=== PATIENT | male | born 1980 | race Caucasian/White ===

== ENCOUNTER 2018-08-23 02:22 | Emergency (ER) | payer SELFPAY ==
[2018-08-23 12:56] LABS: ALT (SGPT) 42 U/L (8-55); AST (SGOT) 22 U/L (5-34); Albumin 4.1 g/dL (3.5-5.0); Alkaline Phosphatase 52 U/L (40-150); Anion Gap 13 mmol/L (10-20); BUN (Urea Nitrogen) 14 mg/dL (8.9-20.6); Bilirubin, Total 0.7 mg/dL (0.2-1.2); Calc. Creatinine Clearance 0 mL/min (70-130); Calcium 9.8 mg/dL (7.8-10.44); Carbon Dioxide 25 mmol/L (22-29); Chloride 104 mmol/L (98-107); Estimated GFR-MDRD 75; Globulin 3.3 g/dL (2.4-3.5); Glucose 91 mg/dL (70-105); Potassium 4.1 mmol/L (3.5-5.1); Protein, Total 7.4 g/dL (6.0-8.3); Sodium 138 mmol/L (136-145)
[2018-08-23 13:48] LABS: PTT 34.8 SEC (22.9-36.1); Prothrombin Time 13.1 SEC (12.0-14.7)
[2018-08-23 13:50] LABS: #Basophils 0.1 thou/uL (0.0-0.2); #Eosinphils 0.5 thou/uL (0.0-0.7); #Lymphocytes 2.8 thou/uL (1.20-3.40); #Monocytes 0.7 thou/uL (0.11-0.59); #Neutrophils 5.7 thou/uL (1.40-6.50); %Basophils 0.6 % (0.0-1.0); %Eosinophils 5.5 % (0.0-10.0); %Lymphocytes 28.2 % (21.0-51.0); %Monocytes 7.5 % (0.0-10.0); %Neutrophils 58.1 % (42.0-75.0); Hemoglobin 17.4 g/dL (14.0-18.0); Mean Corpuscular Hemoglobin 30.8 pg (27.0-31.0); Mean Corpuscular Volume 90.8 fL (78.0-98.0); Mean Platelet Volume 7.5 fL (7.4-10.4); Platelet Count 209 thou/uL (130-400); RBC Distribution Width 11.4 % (11.5-14.5); Red Blood Cell (RBC) Count 5.63 mill/uL (4.70-6.10); White Blood Cell (WBC) Count 9.8 thou/uL (4.8-10.8)
== END 2018-08-23 11:31 | disposition home or self-care (01) ==
LOC: ERS 02:22
DX: K64.5 Perianal venous thrombosis (principal)
CPT/HCPCS: 80053; 85025; 85610; 85730; 86850; 86900; 86901; 99283

== ENCOUNTER 2020-04-15 18:35 | Emergency (ER) | payer SELFPAY ==
[~2020-04-15 18:35] MED LIST: Iopamidol-370 76% 500 ML 1 ML ONE
--- NOTE | 2020-04-15 19:28 | RAD ---
CHEST ONE VIEW: 04/15/20 HISTORY: Chest pain. COMPARISON: Chest radiograph 2011. FINDINGS: Lungs are clear. No pneumothorax or effusion. Cardiac silhouette and mediastinal contours are within normal limits. No acute osseous abnormality. IMPRESSION: No acute intrathoracic abnormality. POS: HOME
[2020-04-15 19:41] LABS: #Basophils 0.1 thou/uL (0.0-0.2); #Eosinphils 0.4 thou/uL (0.0-0.7); #Lymphocytes 2.8 thou/uL (1.20-3.40); #Monocytes 0.8 thou/uL (0.11-0.59); #Neutrophils 5.3 thou/uL (1.40-6.50); %Basophils 0.7 % (0.0-1.0); %Lymphocytes 30.1 % (21.0-51.0); %Monocytes 8.3 % (0.0-10.0); Hemoglobin 17.2 g/dL (14.0-18.0); Mean Corpuscular HGB CONC 35.2 g/dL (32.0-36.0); Mean Corpuscular Hemoglobin 31.4 pg (27.0-31.0); Mean Corpuscular Volume 89.1 fL (78.0-98.0); Mean Platelet Volume 7.5 fL (7.4-10.4); Platelet Count 216 thou/uL (130-400); RBC Distribution Width 11.2 % (11.5-14.5); Red Blood Cell (RBC) Count 5.47 mill/uL (4.70-6.10); White Blood Cell (WBC) Count 9.4 thou/uL (4.8-10.8)
[2020-04-15 19:59] LABS: ALT (SGPT) 27 U/L (8-55); AST (SGOT) 16 U/L (5-34); Albumin 4.3 g/dL (3.5-5.0); Alkaline Phosphatase 53 U/L (40-110); Anion Gap 11 mmol/L (10-20); BUN (Urea Nitrogen) 14 mg/dL (8.9-20.6); Bilirubin, Total 0.7 mg/dL (0.2-1.2); Calc. Creatinine Clearance 0 mL/min (70-130); Calcium 9.6 mg/dL (7.8-10.44); Carbon Dioxide 26 mmol/L (22-29); Chloride 106 mmol/L (98-107); Estimated GFR-MDRD 69; Globulin 3.1 g/dL (2.4-3.5); Glucose 95 mg/dL (70-105); Potassium 3.9 mmol/L (3.5-5.1); Protein, Total 7.4 g/dL (6.0-8.3); Sodium 139 mmol/L (136-145)
--- NOTE | 2020-04-15 20:15 | CT ---
CT ABDOMEN AND PELVIC WITH CONTRAST: 04/15/20 HISTORY: Abdominal pain. COMPARISON: None. FINDINGS: Lung bases are clear. No pericardial effusion. No dilated loops of large or small bowel. The appendix is visualized and is normal. The spleen, pancreas, adrenal glands are unremarkable. Small cyst posterior cortex superior pole left kidney. Celiac trunks, superior mesenteric arteries are patent. Aortic contour is normal. No retrope ritoneal or periaortic adenopathy. Small cyst hepatic segment 7. There is a 1 cm cyst hepatic segment 5. Bilateral pars interarticularis defect at L5 with 2-3 mm anterolisthesis. IMPRESSION: No acute inflammatory process in the abdomen or pelvis. POS: HOME
--- NOTE | 2020-04-17 12:08 | EKG ---
Test Reason : CP Blood Pressure : / mmHG Vent. Rate : 063 BPM Atrial Rate : 063 BPM P-R Int : 160 ms QRS Dur : 090 ms QT Int : 382 ms P-R-T Axes : 015 -08 001 degrees QTc Int : 390 ms Normal sinus rhythm Minimal voltage criteria for LVH, may be normal variant Borderline ECG Confirmed by DEVAN TRIPATHI DO ([id number]), editor farm journal JOYCE OLSON ([id number]) on 04/17/2020 12:08:09 PM Referred By: Confirmed By:DEVAN TRIPATHI DO
== END 2020-04-15 20:33 | disposition home or self-care (01) ==
LOC: ERS 18:35
DX: R07.9 Chest pain, unspecified (principal); R10.11 Right upper quadrant pain
CPT/HCPCS: 71045; 74177; 80053; 84484; 85025; 93005; Q9967

== ENCOUNTER 2020-04-20 19:27 | Observation (INO) | payer SELFPAY ==
[2020-04-20] MEDS ORDERED: Aspirin Chewable 81 MG TAB ONE (20:46)
[2020-04-20] MEDS ORDERED: Nitroglycerin 0.4 MG TAB 1 EACH ONE (20:46)
[2020-04-20 20:47] LABS: #Basophils 0.1 thou/uL (0.0-0.2); #Eosinphils 0.3 thou/uL (0.0-0.7); #Lymphocytes 2.7 thou/uL (1.20-3.40); #Monocytes 0.7 thou/uL (0.11-0.59); #Neutrophils 5.4 thou/uL (1.40-6.50); %Basophils 0.7 % (0.0-1.0); %Eosinophils 3.5 % (0.0-10.0); %Lymphocytes 29.4 % (21.0-51.0); %Monocytes 7.4 % (0.0-10.0); Hemoglobin 17.4 g/dL (14.0-18.0); Mean Corpuscular HGB CONC 34.5 g/dL (32.0-36.0); Mean Corpuscular Hemoglobin 30.6 pg (27.0-31.0); Mean Corpuscular Volume 88.9 fL (78.0-98.0); Mean Platelet Volume 7.6 fL (7.4-10.4); Platelet Count 240 thou/uL (130-400); RBC Distribution Width 11.1 % (11.5-14.5); Red Blood Cell (RBC) Count 5.67 mill/uL (4.70-6.10); White Blood Cell (WBC) Count 9.1 thou/uL (4.8-10.8)
[2020-04-20] MEDS ORDERED: Acetaminophen 500 MG TAB ONE (20:58)
[2020-04-20 21:10] LABS: ALT (SGPT) 24 U/L (8-55); AST (SGOT) 15 U/L (5-34); Albumin 4.3 g/dL (3.5-5.0); Alkaline Phosphatase 56 U/L (40-110); Anion Gap 14 mmol/L (10-20); BUN (Urea Nitrogen) 13 mg/dL (8.9-20.6); Bilirubin, Total 0.8 mg/dL (0.2-1.2); Calc. Creatinine Clearance 0 mL/min (70-130); Calcium 9.4 mg/dL (7.8-10.44); Carbon Dioxide 26 mmol/L (22-29); Chloride 104 mmol/L (98-107); Estimated GFR-MDRD 66; Globulin 3.2 g/dL (2.4-3.5); Glucose 93 mg/dL (70-105); Lipase 190 U/L (8-78); Potassium 3.8 mmol/L (3.5-5.1); Protein, Total 7.5 g/dL (6.0-8.3); Sodium 140 mmol/L (136-145)
--- NOTE | 2020-04-20 21:56 | RAD ---
PORTABLE CHEST ONE VIEW: 04/20/20 at 8:42 p.m. HISTORY: Chest pain. FINDINGS: Comparison made with exam of 04/15/20. The heart size is normal. No focal areas of consolidation, pneumothoraces, or pleural effusions are s een. IMPRESSION: No radiographic evidence of acute cardiopulmonary process. POS: [facility]
--- NOTE | 2020-04-20 22:26 | ULT ---
GALLBLADDER ULTRASOUND: HISTORY: Right upper quadrant abdominal pain FINDINGS: The liver demonstrates homogeneous echotexture without intrahepatic biliary ductal dilatation. There is a 1.4 x 1.2 x 1.6 cm cyst in the right lobe of the liver. No gallstones, gallbladder wall thickening or pericholecystic fluid are seen. The pancreas and common bile duct are obscured by bowel gas. The right kidney is normal. No free fluid is seen in the Norton's pouch. IMPRESSION: 1. Liver cyst 2. No evidence of cholelithiasis
[2020-04-20 23:49] VITALS: BMI 30.4
[2020-04-20] MEDS ORDERED: Senokot S 8.6-50 MG TAB PO PRN (23:56)
[2020-04-20] MEDS ORDERED: Acetaminophen 325 MG TAB PO PRN (23:56)
[2020-04-20] MEDS ORDERED: Calcium Carbonate 500 MG ChewTAB PO PRN (23:56)
[2020-04-20] MEDS ORDERED: Ondansetron ODT 4 MG TAB PO PRN (23:56)
[2020-04-20] MEDS ORDERED: Ondansetron PF 4 MG/2 ML Vial IVP PRN (23:56)
--- NOTE | 2020-04-21 00:48 | PDOC.FPRHP ---
- History of Present Illness Chief Complaint: CP History of Present Illness: Pt is a 39 yo M with pmh of GERD and gas pain who presents to the ED for chest pain. The patient was seen earlier this week for similar symptoms, but was sent home. The patient states that he has had this chest pain for 2 weeks. The pain is a fluttery feeling on the right with right upper quadrant pain as well. He says he also has chest pain on the left that feels like a hard beat. He says the pain occurs while at rest as well as during exertion. He said the pain has gone away on it's own in the past, but the pain he experienced today was relieved with Nitro. Usually, he says he writes most pain off as due to his GERD , but he says this feels different than the GERD he has had in the past and he is concerned because he has a significant family history. He established with Dr. Levine earlier this week and was supposed to get a Cardiology referral call tomorrow. He did mention left arm numbness when he experiences these episodes from time to time. Of note, the patient says he has lost 20 lbs over the last 3 months intentionally with his daughter by running daily and avoiding added sweetners. He stated he was up to 2 miles running, but with this pain he does not know if he can run what he was running. ED Course: In the ED, he was given Tylenol, ASA, and nitroglycerin. His labs were remarkable for a Lipase of 190. Trop was < 0.01. EKG was NSR. - Allergies/Adverse Reactions Allergies Allergy/AdvReac Type Severity Reaction Status Date / Time No Known Allergies Allergy Unverified 04/21/20 00:02 - Home Medications Medication Instructions Recorded Confirmed Type No Known 04/21/20 04/21/20 History - History PMHx: GERD, Gas pain PSHx: None FHx: * Brother with stent at 30 * Dad with heart attack, CABG, stent, and now CHF * Paternal Uncle with heart attack * Paternal Grandfather with heart attack at 55, which he from Social: No alcohol, tobacco, or recreational drugs. - Review of Systems General: reports: weight/appetite/sleep changes. denies: fever/chills, fatigue Eyes: denies: vision changes ENT: denies: nasal congestion, rhinorrhea Respiratory: reports: exercise intolerance. denies: cough, congestion, shortness of breath Cardiovascular: reports: chest pain. denies: edema, paroxysmal nocturnal dyspnea, orthopnea Gastrointestinal: denies: nausea, vomiting, diarrhea, constipation, abdominal pain Genitourinary: denies: dysuria Skin: denies: rashes, lesions Musculoskeletal: denies: pain, tenderness Neurological: reports: numbness. denies: weakness - Vital signs BP: 125/75 HR: 59 RR: 20 Tmax: 97.9 Pox: 96% on RA Wt: 99.8 kg - Physical Exam Constitutional: NAD, awake, alert and oriented HEENT: normocephalic and atraumatic, conjunctiva clear, no scleral icterus, MMM , oropharynx clear, good dention Neck: supple, no LAD Chest: no-tender to palpation Heart: RRR, normal S1/S2, no murmurs/rubs/gallops, pulses present, no edema Lungs: CTAB, no respiratory distress, good air movement, no rales/rhonchi, no wheezing, no retractions Abdomen: soft, non-tender, bowel sounds present Musculoskeletal: normal structure, normal tone, ROM grossly normal Neurological: no focal deficit, CN II-XII intact Skin: no rash/lesions Heme/Lymphatic: no unusual bruising or bleeding Psychiatric: normal mood and affect FMR H&P: Results - Labs Result Diagrams: 04/20/20 20:41 04/21/20 04:25 Lab results: WBC 9.1 thou/uL (4.8-10.8) 04/20/20 20:41 Hgb 17.4 g/dL (14.0-18.0) 04/20/20 20:41 Hct 50.4 % (42.0-52.0) 04/20/20 20:41 MCV 88.9 fL (78.0-98.0) 04/20/20 20:41 Plt Count 240 thou/uL (130-400) 04/20/20 20:41 Neutrophils % 59.0 % (42.0-75.0) 04/20/20 20:41 Sodium 140 mmol/L (136-145) 04/20/20 20:41 Potassium 3.8 mmol/L (3.5-5.1) 04/20/20 20:41 Chloride 104 mmol/L (98-107) 04/20/20 20:41 Carbon Dioxide 26 mmol/L (22-29) 04/20/20 20:41 BUN 13 mg/dL (8.9-20.6) 04/20/20 20:41 Creatinine 1.23 mg/dL (0.7-1.3) 04/20/20 20:41 Glucose 93 mg/dL (70-105) 04/20/20 20:41 Calcium 9.4 mg/dL (7.8-10.44) 04/20/20 20:41 Total Bilirubin 0.8 mg/dL (0.2-1.2) 04/20/20 20:41 AST 15 U/L (5-34) 04/20/20 20:41 ALT 24 U/L (8-55) 04/20/20 20:41 Alkaline Phosphatase 56 U/L (40-110) 04/20/20 20:41 Serum Total Protein 7.5 g/dL (6.0-8.3) 04/20/20 20:41 Albumin 4.3 g/dL (3.5-5.0) 04/20/20 20:41 Lipase 190 U/L (8-78) H 04/20/20 20:41 - EKG Interpretation EKG: Normal sinus rhythm. No axis deviation. QT: 410 - Radiology Interpretation US - abdomen Status: report reviewed by me (Liver cyst, No cholelithiasis) Chest x-ray Status: report reviewed by me (NAF) FMR H&P: A/P - Problem List (1) Chest pain Current Visit: Yes Status: Acute Code(s): R07.9 - CHEST PAIN, UNSPECIFIED (2) GERD (gastroesophageal reflux disease) Current Visit: Yes Status: Acute Code(s): K21.9 - GASTRO-ESOPHAGEAL REFLUX DISEASE WITHOUT ESOPHAGITIS (3) Palpitations Current Visit: Yes Status: Acute Code(s): R00.2 - PALPITATIONS (4) Gas pain Current Visit: Yes Status: Acute Code(s): R14.1 - GAS PAIN - Plan Pt is a 39 yo M with pmh of GERD and gas pain who presents to the ED for chest pain. 1. Chest pain vs. Palpitations CP right or left with no radiation, at rest and with exercise, relieved by nitroglycerin- Atypical * Significant FMH * HEART Score: 1 * CXR: NAF * Will trend trops * Trop: < 0.01 * Nitro & ASA given in ED * Will continue ASA, Added on Atorvastatin * TSH, Lipid Panel, Mag, & Phos order * Stress ordered for AM * NPO at midnight 2. Pancreatitis Lipase: 190 * RUQ US: Liver cyst with no cholelithiasis * Pain resolved after nitro, unlikely 3. GERD Hx of GERD, currently diet controlled * Tums prn * Will monitor 4. Gas Pain Pain in abdomen has currently resolved * Will monitor Code Status: Full Diet: NPO IVF: SL DVT PPx: Lovenox GI PPx: Tums prn PCP: Abner Dispo: Admit to tele obs for chest pain rule out. LOS < 48H. FMR H&P: Upper Level - Pertinent history I was present with the international banker. I made edits to above HPI as needed. See above for details. - Pertinent findings Cardio: RRR, no murmurs or gallops Resp: CTA-B, no wheezes or crackles Ext: No edema noted. Moves all ext - Plan Date/Time: 04/21/20 1977 I, Eugene Conway, PGY-3, have evaluated this patient and agree with findings/ plan as outlined by international banker resident. Pertinent changes/additions are listed above. I have reviewed the above plan and made edits as needed. At this time will admit pt for stress test and chest pain r/o. Pt has significant family history of early onset CAD.. Addendum - Attending - Attending Attestation Date/Time: 04/21/20 [id number] I personally evaluated the patient and discussed the management with Dr. Goff/ Zoraida. I agree with the History, Examination, Assessment and Plan documented above with any addition or exceptions noted below. Patient here with chest pain and increasing fatigue over the last few weeks. EKG and trops negative for ACS. He does have extensive family history of CAD. His chest pain complaint is atypical. Stress test today and discharge with negative result for further workup outpatient. If positive, will need cardiology evaluation.
[2020-04-21] MEDS ORDERED: Atorvastatin Calcium 40 MG TAB PO SCH ×2 (01:00→21:00)
[2020-04-21 01:06] LABS: Cardiac Risk 6.3 (Less than 4.5); Cholesterol 182 mg/dl (< 200 Desired); HDL Cholesterol 29 mg/dL (>60 Neg Risk); LDL Cholesterol, Calculated 135 mg/dL; Phosphorus 3.6 mg/dL (2.3-4.7); Triglycerides 91 mg/dL (Less than 150)
[2020-04-21 01:10] LABS: Troponin I Less than 0.010 ng/mL (< 0.028)
[2020-04-21 05:02] LABS: ALT (SGPT) 21 U/L (8-55); AST (SGOT) 13 U/L (5-34); Albumin 3.9 g/dL (3.5-5.0); Alkaline Phosphatase 51 U/L (40-110); Anion Gap 12 mmol/L (10-20); BUN (Urea Nitrogen) 13 mg/dL (8.9-20.6); Bilirubin, Total 0.8 mg/dL (0.2-1.2); Calc. Creatinine Clearance 114 mL/min (70-130); Calcium 9.2 mg/dL (7.8-10.44); Carbon Dioxide 27 mmol/L (22-29); Chloride 104 mmol/L (98-107); Estimated GFR-MDRD 64; Glucose 91 mg/dL (70-105); Protein, Total 6.9 g/dL (6.0-8.3); Sodium 139 mmol/L (136-145)
--- NOTE | 2020-04-21 07:07 | PDOC.FM ---
- Subjective Subjective: Pt is asymptomatic. He was supposed to be seen by cardiology today. Chest pain resolved at this time. It was right sided, radiated down L arm. He has extensive family history. - Objective Vital Signs & Weight: Vital Signs (12 hours) Temp Pulse Resp BP BP Pulse Ox 04/21/20 03:06 97.7 F 53 L 18 110/66 93 L 04/20/20 23:40 97.8 F 56 L 18 125/76 97 Weight Admit Weight 101.65 kg Weight 101.65 kg I&O: 04/20/20 04/21/20 04/22/20 06:59 06:59 06:59 Intake Total 300 Balance 300 Result Diagrams: 04/20/20 20:41 04/21/20 04:25 EKG Reviewed by me: Yes (NSR) Phys Exam - Physical Examination Constitutional: NAD HEENT: PERRLA Neck: no JVD, full ROM Respiratory: no wheezing, clear to auscultation bilateral Cardiovascular: RRR, no significant murmur Gastrointestinal: soft, positive bowel sounds Neurological: non-focal, moves all 4 limbs Psychiatric: normal affect, A&O x 3 Dx/Plan (1) Chest pain Code(s): R07.9 - CHEST PAIN, UNSPECIFIED Status: Acute (2) GERD (gastroesophageal reflux disease) Code(s): K21.9 - GASTRO-ESOPHAGEAL REFLUX DISEASE WITHOUT ESOPHAGITIS Status: Acute (3) Gas pain Code(s): R14.1 - GAS PAIN Status: Acute (4) Palpitations Code(s): R00.2 - PALPITATIONS Status: Acute - Plan Plan: Pt is a 39 yo M with pmh of GERD and gas pain who presents to the ED for chest pain. 1. Chest pain vs. Palpitations CP right or left with no radiation, at rest and with exercise, relieved by nitroglycerin- Atypical * Significant FMH * HEART Score: 1 * CXR: NAF * Will trend trops - negative * Nitro & ASA given in ED alleviating pain * Will continue ASA, Added on Atorvastatin * Electrolytes, TSH WNL. ASCVD < 5. * Stress pendingt 2. Pancreatitis Lipase: 190 * RUQ US: Liver cyst with no cholelithiasis * Pain resolved after nitro, unlikely 3. GERD Hx of GERD, currently diet controlled * Tums prn * Will monitor 4. Gas Pain Pain in abdomen has currently resolved * Will monitor Code Status: Full Diet: NPO IVF: SL DVT PPx: Lovenox GI PPx: Tums prn PCP: Abner Dispo: Admit to tele obs for chest pain rule out. LOS < 48H. Addendum - Attending - Attending Attestation Date/Time: 04/21/20 1212 I personally evaluated the patient and discussed the management with Dr. Hudson. I agree with the History, Examination, Assessment and Plan documented above with any addition or exceptions noted below.
[2020-04-21] MEDS ORDERED: Enoxaparin Sodium 40 MG/0.4 ML SYRINGE SC SCH (09:00)
[2020-04-21] MEDS ORDERED: Aspirin 81 mg Enteric Coated Tablet PO SCH (09:00)
[2020-04-21 12:13] VITALS: BP 121/68; TEMP 98.1
--- NOTE | 2020-04-21 12:50 | NM ---
NUCLEAR MEDICINE CARDIAC MYOCARDIAL PERFUSION SPECT EJECTION FRACTION STUDY WALL MOTION CINE: DATE: 04/21/2020 HISTORY: 39-year-old male with family history of coronary artery disease presents with acute chest pain TECHNIQUE: Number of days: 1 Rest study: Technetium 99m-sestamibi (Cardiolite) dose: 9.8 mCi Exercise stress: Treadmill Stress study: Technetium 99m-sestamibi (Cardiolite) dose: 31.9 mCi FINDINGS: CARDIAC (MYOCARDIAL PERFUSION) SPECT There are no reversible myocardial perfusion defects. EJECTION FRACTION STUDY Left ventricular EF = 72 % WALL MOTION CINE Normal IMPRESSION: No evidence of reversible ischemia.
--- NOTE | 2020-04-22 13:05 | DIS ---
DATE OF ADMISSION: 04/20/2020 DATE OF DISCHARGE: 04/21/2020 RESIDENT: Rishabh Hudson DO ADMITTING ATTENDING: Ez Buckley MD DISCHARGE ATTENDING: Ez Buckley MD CONSULTS: None. PROCEDURES PERFORMED: 1. Abdominal ultrasound on 04/20/2020, revealed liver cysts, no evidence of cholelithiasis. 2. Chest x-ray on 04/20/2020, revealed no radiographic evidence of acute cardiopulmonary process. 3. Stress test on 04/21/2020, revealed no evidence of reversible ischemia, left ventricular EF 72%, wall motion normal. PRIMARY DIAGNOSES: 1. Chest pain. 2. Gastroesophageal reflux disease. 3. Chest pain. 4. Palpitations. 5. Elevated lipase. SECONDARY DIAGNOSIS: None. DISCHARGE MEDICATIONS: Atorvastatin 40 mg p.o. at bedtime. DISCONTINUED MEDICATIONS: None. HISTORY OF PRESENT ILLNESS/HOSPITAL COURSE: Loki Johnson is a 39-year-old male without significant past medical history, but does have extensive family history of cardiac disease including a brother had a myocardial infarction at 30, fther myocardial infarction before 55. He ended up coming in with chest pain and palpitations, which was relieved with nitroglycerin. The chest pain did come on at rest. He had a heart score of 1, troponin levels trended were negative. He has an ASCVD risk score less than 5 but due to his extensive family history, we started him on atorvastatin. He also had a stress test, which revealed no reversible ischemia and normal ejection fraction. He did have a lipase of 190 and right upper quadrant ultrasound revealed no cholelithiasis, but did show liver cyst. The patient did state that he has intermittent reflux, so discussed with the patient using Tums in the outpatient setting p.r.n. The patient has just established care with Dr. Levine, whom he will follow up within the next 7 days. DISPOSITION: Stable. DISCHARGE INSTRUCTIONS: 1. Location: [facility]. 2. Diet: Regular. 3. Activity: Ad salvador. 4. Followup: Follow up with Dr. Levine within 7 days. Job ID: [id number]
== END 2020-04-21 14:22 | disposition home or self-care (01) ==
LOC: ERS 19:27 → 2NO 22:53
PROVIDERS: ADMIT Emergency Medicine; ATTEND Emergency Medicine
DX: R07.9 Chest pain, unspecified (principal); K21.9 Gastro-esophageal reflux disease without esophagitis; K85.90 Acute pancreatitis without necrosis or infection, unspecified
CPT/HCPCS: 36415; 71045; 76705; 78452; 80053; 80061; 83690; 83735; 84100; 84443; 84484; 85025; 93005; 93017; 96372; A9500; G0378; J1650